=== PATIENT | female | born 1985 | race Caucasian/White ===

== ENCOUNTER 2018-10-28 21:11 | Emergency (ER) | payer OTHER, MEDICAID ==
--- NOTE | 2018-10-28 21:24 | EDPHY ---
H & P Time Seen by Provider: 10/28/18 21:24 HPI/ROS: HPI CHIEF COMPLAINT: M1 hold, increasing anxiety HISTORY OF PRESENT ILLNESS: Patient is a 33-year-old female, she presents emergency room by EMS from [facility] on M1 hold. The patient reports to me that she has had increasing paranoia, anxiety, went to [facility] today for help and was placed on M1 hold and transferred here to the emergency room. She is upset. She does states she has a history of bipolar disorder. Katharine. Past Medical History: "Complex PTSD," bipolar disorder Past Surgical History: Denies recent surgery Social History: Denies current use of drugs. Family History: Noncontributory ROS REVIEW OF SYSTEMS: 10 Systems were reviewed and negative with the exception of the elements mentioned in the history of present illness. Exam Constitutional triage nursing summary reviewed, vital signs reviewed, awake/ alert. Eyes normal conjunctivae and sclera, EOMI, PERRLA. HENT normal inspection, atraumatic, moist mucus membranes, no epistaxis, neck supple/ no meningismus, no raccoon eyes. Respiratory clear to auscultation bilaterally, normal breath sounds, no respiratory distress, no wheezing. Cardiovascular rate normal, regular rhythm, no murmur, no edema, distal pulses normal. Gastrointestinal soft, non-tender, no rebound, no guarding, normal bowel sounds, no distension, no pulsatile mass. Genitourinary no CVA tenderness. Musculoskeletal no midline vertebral tenderness, full range of motion, no calf swelling, no tenderness of extremities, no meningismus, good pulses, neurovascularly intact. Skin pink, warm, & dry, no rash, skin atraumatic. Neurologic awake, alert and oriented x 3, AAOx3, moves all 4 extremities equally, motor intact, sensory intact, CN II-XII intact, normal cerebellar, normal vision, normal speech. Psychiatric angry, anxious Heme/Lymph/Immune no lymphadenopathy. Differential Diagnosis: Includes but is not limited to in a row particular order underlying mental illness, bipolar disorder, anxiety, PTSD, suicidal ideation Medical Decision Making: Plan for this patient blood draw for medical clearance , patient is on M1 hold. She has had a mental health evaluation by [facility]. Re-evaluation: 0416: Patient is acutely agitated and screaming and yelling at staff. 10 mg p. O. Zyprexa as been ordered. 0600: Patient is sleeping after 10 mg p.o. Zyprexa. 0600: Patient accepted at , Dr. Ball. Appropriate tranfer will bet set up Source: Patient, EMS - Personal History Tetanus Vaccine Date: 2008 - Medical/Surgical History Hx Asthma: No Hx Chronic Respiratory Disease: No Hx Diabetes: No Hx Cardiac Disease: No Hx Renal Disease: No Hx Cirrhosis: No Hx Alcoholism: No Hx HIV/AIDS: No Hx Splenectomy or Spleen Trauma: No Other PMH: PTSD, BIPOLAR, ANXIETY - Social History Smoking Status: Current every day smoker Constitutional: Initial Vital Signs Temperature (C) 36.9 C 10/28/18 21:15 Heart Rate 84 10/28/18 21:15 Respiratory Rate 17 10/28/18 21:15 Blood Pressure 121/98 H 10/28/18 21:15 O2 Sat (%) 94 10/28/18 21:15 O2 Delivery Mode Room Air Allergies/Adverse Reactions: No Known Allergies Allergy (Verified 07/20/13 06:57) Home Medications: Medication Instructions Recorded Clonazepam 1.5 mg 08/19/15 LamICTAL 100 MG (RX) BID 08/19/15 Ziprasidone HCl [Geodon] 08/19/15 Zolpidem Tartrate [Ambien 10 mg] 08/19/15 Medical Decision Making - Data Points Laboratory Results: Laboratory Results 10/28/18 21:34 10/28/18 21:34 10/28/18 10/28/18 10/28/18 21:45 21:34 21:34 WBC RBC Hgb Hct MCV MCH MCHC RDW Plt Count MPV Neut % (Auto) Lymph % (Auto) Bond % (Auto) Eos % (Auto) Baso % (Auto) Nucleat RBC Rel Count Absolute Neuts (auto) Absolute Lymphs (auto) Absolute Monos (auto) Absolute Eos (auto) Absolute Basos (auto) Absolute Nucleated RBC Immature Gran % Immature Gran # Sodium 138 mEq/L mEq/L (135-145) Potassium 4.1 mEq/L mEq/L (3.5-5.2) Chloride 109 mEq/L mEq/L (97-110) Carbon Dioxide 20 mEq/l L mEq/l (22-31) Anion Gap 9 mEq/L mEq/L (6-14) BUN 12 mg/dL mg/dL (7-23) Creatinine 0.6 mg/dL mg/dL (0.6-1.0) Estimated GFR > 60 Glucose 109 mg/dL H mg/dL (70-100) Calcium 9.1 mg/dL mg/dL (8.5-10.4) Beta HCG, Qual NEGATIVE Salicylates < 1.0 mg/dL L mg/dL (2.0-20.0) Urine Opiates Screen NEGATIVE (NEGATIVE) Acetaminophen < 10 mcg/mL L mcg/mL (10-30) Urine Barbiturates NEGATIVE (NEGATIVE) Ur Phencyclidine Scrn NEGATIVE (NEGATIVE) Ur Amphetamine Screen NEGATIVE (NEGATIVE) U Benzodiazepines Scrn NON-NEGATIVE H (NEGATIVE) Urine Cocaine Screen NEGATIVE (NEGATIVE) U Marijuana (THC) Screen NON-NEGATIVE H (NEGATIVE) Ethyl Alcohol < 10 mg/dL mg/dL (0-10) 10/28/18 21:34 WBC 11.45 10^3/uL H 10^3/uL (3.80-9.50) RBC 4.58 10^6/uL 10^6/uL (4.18-5.33) Hgb 12.7 g/dL g/dL (12.6-16.3) Hct 38.7 % % (38.0-47.0) MCV 84.5 fL fL (81.5-99.8) MCH 27.7 pg L pg (27.9-34.1) MCHC 32.8 g/dL g/dL (32.4-36.7) RDW 13.2 % % (11.5-15.2) Plt Count 309 10^3/uL 10^3/uL (150-400) MPV 10.4 fL fL (8.7-11.7) Neut % (Auto) 58.1 % % (39.3-74.2) Lymph % (Auto) 32.1 % % (15.0-45.0) Bond % (Auto) 6.6 % % (4.5-13.0) Eos % (Auto) 2.5 % % (0.6-7.6) Baso % (Auto) 0.4 % % (0.3-1.7) Nucleat RBC Rel Count 0.0 % % (0.0-0.2) Absolute Neuts (auto) 6.65 10^3/uL H 10^3/uL (1.70-6.50) Absolute Lymphs (auto) 3.68 10^3/uL H 10^3/uL (1.00-3.00) Absolute Monos (auto) 0.75 10^3/uL 10^3/uL (0.30-0.80) Absolute Eos (auto) 0.29 10^3/uL 10^3/uL (0.03-0.40) Absolute Basos (auto) 0.05 10^3/uL 10^3/uL (0.02-0.10) Absolute Nucleated RBC 0.00 10^3/uL 10^3/uL (0-0.01) Immature Gran % 0.3 % % (0.0-1.1) Immature Gran # 0.03 10^3/uL 10^3/uL (0.00-0.10) Sodium Potassium Chloride Carbon Dioxide Anion Gap BUN Creatinine Estimated GFR Glucose Calcium Beta HCG, Qual Salicylates Urine Opiates Screen Acetaminophen Urine Barbiturates Ur Phencyclidine Scrn Ur Amphetamine Screen U Benzodiazepines Scrn Urine Cocaine Screen U Marijuana (THC) Screen Ethyl Alcohol Medications Given: Discontinued Medications Ibuprofen (Motrin) 800 mg PO EDNOW ONE Stop: 10/29/18 04:29 Last Admin: 10/29/18 04:48 Dose: 800 mg Olanzapine (Olanzapine) 10 mg PO ONCE ONE Stop: 10/29/18 04:12 Last Admin: 10/29/18 04:20 Dose: 10 mg Departure - Departure Disposition: Other Psych, Not Circle Clinical Impression: Acute psychosis Condition: Fair Referrals: Patient,NotPresent [Unknown] - As per Instructions
[2018-10-28 21:46] LABS: PLATELET COUNT 309 10^3/uL (150-400)
[2018-10-29] MEDS ORDERED: OLANZapine 5 MG TAB PO ONE (04:11)
[2018-10-29] MEDS ORDERED: IBUPROFEN 800 MG TAB PO ONE (04:28)
[2018-10-29 07:44] VITALS: BP 120/86
== END 2018-10-29 07:44 ==
LOC: EDUNIT#
DX: F23 Brief psychotic disorder (principal); F41.9 Anxiety disorder, unspecified
CPT/HCPCS: 80305; G0480